=== PATIENT | male | born 1990 | race Caucasian/White ===

== ENCOUNTER 2017-05-14 23:31 | Inpatient (IN) | payer OTHER ==
[~2017-05-14] VITALS: Ht 167.6 cm; Wt 67.8 kg
[~2017-05-14 23:31] MED LIST: IBUP-232 PO; Z.0.NO CURRENT MEDS
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
[2017-05-14 23:44] VITALS: BP 145/93; PULSE 104; RESP 18; TEMP 98.5; O2SAT 98
[2017-05-15] LABS: AUTOMATED NEUTROPHIL # 4.1 TH/MM3 (1.8-7.7); BASOPHIL % 0.5 % (0.0-2.0); EOSINOPHIL # 0.1 TH/MM3 (0-0.4); EOSINOPHIL % 0.7 % (0.0-4.0); HEMATOCRIT 45.1 % (39.0-51.0); HEMO FLAGS DIFF FINAL; LYMPH % 34.8 % (9.0-44.0); LYMPHOCYTE # 2.7 TH/MM3 (1.0-4.8); MEAN CORPUSCULAR HEMOGLOBIN 32.9 PG (27.0-34.0); MEAN CORPUSCULAR HGB CONC 35.8 % (32.0-36.0); PLATELET COUNT 226 TH/MM3 (150-450); WHITE BLOOD COUNT 7.8 TH/MM3 (4.0-11.0)
[2017-05-15 00:05] LABS: AMPHETAMINE, URINE NEG (NEG); BARBITURATES, URINE NEG (NEG); COCAINE, URINE NEG (NEG)
[2017-05-15 00:15] LABS: ANION GAP 8 MEQ/L (5-15); BICARBONATE 27.4 MEQ/L (21.0-32.0); BLOOD UREA NITROGEN 8 MG/DL (7-18); CHLORIDE 105 MEQ/L (98-107); GLOMERULAR FILTRATION RATE 93 ML/MIN (>89); SODIUM (NA) 140 MEQ/L (136-145)
[2017-05-15] MEDS ORDERED: OLANZapine 10 MG TAB PO ONE (00:15)
[2017-05-15] MEDS ORDERED: POTASSIUM CHLORIDE 10 MEQ CONTROLLED RELEASE TAB PO ONE (00:30)
[2017-05-15] MEDS ORDERED: LORazepam 2 MG/ML VIAL IM ONE (01:30)
[2017-05-15 06:07] VITALS: BP 120/80; PULSE 68; RESP 20; TEMP 96.8; O2SAT 99
[2017-05-15] MEDS ORDERED: ZIPRASIDONE MESYLATE 20 MG VIAL IM PRN ×2 (13:00→21:00)
[2017-05-15] MEDS ORDERED: diphenhydrAMINE HCL 50 MG/ML VIAL IM ONE (13:00)
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
[2017-05-15] MEDS ORDERED: ACETAMINOPHEN 325 MG TAB PO PRN (21:00)
[2017-05-15] MEDS ORDERED: diphenhydrAMINE HCL 50 MG CAP PO PRN (21:00)
[2017-05-15] MEDS ORDERED: MAGNESIUM HYDROXIDE SUSP 30 ML CUP PO PRN (21:00)
[2017-05-15] MEDS ORDERED: ZIPRASIDONE HCL 20 MG CAP PO PRN (21:00)
[2017-05-15] MEDS ORDERED: LORazepam 2 MG/ML VIAL IM PRN (21:00)
[2017-05-15] MEDS: REMOVE OLD NICOTINE PATCH T-DERMAL SCH (21:00)
[2017-05-15] MEDS ORDERED: ALUMINUM/MAGNESIUM/SIMETH 30 ML CUP PO PRN (21:00)
[2017-05-15] MEDS ORDERED: diphenhydrAMINE HCL 50 MG/ML VIAL IM PRN (21:00)
[2017-05-15 22:45] VITALS: BP 115/82; PULSE 79; RESP 18; TEMP 98.1
[2017-05-16 06:06] VITALS: BP 111/71; PULSE 91; RESP 18; TEMP 97.9; O2SAT 100
[2017-05-16] MEDS: NICOTINE 21 MG/24 HR PATCH T-DERMAL SCH (09:00)
--- NOTE | 2017-05-16 12:03 | HHI.HP ---
Provisional Diagnosis Admission Date May 15, 2017 at 20:02 [place] I. Unspecified psychosis, r/o substance-induced psychosis, r/o schizophrenia, r/o schizoaffective disorder, bipolar type [place] II. Unspecified personality disorder, r/o antisocial personality disorder Otisco III. No medical history Otisco IV. History of conduct disorder, incarcerations, drug use Otisco V. 30 (Yohan Lorenzo MD) Certification of Person's Competence To Provide Express and Informed Consent I have personally examined Theron Beard , a person being served at [facility] onMay 16, 2017 11:25. Express and informed consent means consent voluntarily given in writing, by a competent person, after sufficient explanation and disclosure of the subject matter involved to enable the person to make a knowing and willful decision without any element of force, fraud, deceit, duress, or other form of constraint or coercion. This person is 18 years of age or older, is not now known to be incompetent to consent to treatment with a guardian advocate, and does not have a health care surrogate or proxy currently making medical treatment decisions. I have found this person to be one of the following: [] Competent to provide express and informed consent, as defined above, for voluntary admission to this facility and is competent to provide express and informed consent for treatment. He/she has the consistent capacity to make well reasoned, willful, and knowing decisions concerning his or her medical or mental health treatment. The person fully and consistently understands the purpose of the admission for examination/placement and is fully capable of personally exercising all rights assured under [place] [X] Incompetent to provide express and informed consent to voluntary admission, and this is incompetent to provide express and informed consent to treatment. The person must be transferred to involuntary status and a petition for a guardian advocate filed with the Circuit Court. [] Refusing to provide express and informed consent to voluntary admission but is competent to provide express and informed consent for treatment. The person must be discharged or transferred to involuntary status. Form shall be completed within 24 hours of a person's arrival at the receiving facility and filed in the clinical record of each person: 1. Admitted on a voluntary basis 2. Permitted to provide express and informed consent to his/her own treatment 3. Allowed to transfer from involuntary to voluntary status 4. Prior to permitting a person to consent to his or her own treatment after having been previously found incompetent to consent to treatment. (Yohan Lorenzo MD) History of Present Illness Capacity: Lacks Capacity HPI The patient is a 26-year-old man, self reported homeless, unemployed, recently released from group home after 5 years incarceration, with extensive psychiatric history of bipolar disorder, unspecified psychosis, cognitive disorder, substance use disorder, previous psychiatric hospitalizations, he was outpatient is the [facility], has been seen in [facility] before under Mcmillan act, documentation was reviewed, previous suicidal attempts, no significant medical history, who presents to the emergency department for evaluation under Mcmill[place] act. Per report, patient has been in [facility] for the last 5 years but 2 of which included solitary confinement. He is discharged 3 days ago. He has been off of his medications. Patient states he is unable to get medications. Patient was initially seen by Dr. Brown in [facility]: 26-year-old male with history of psychotic mental illness, recently released from [facility] after attempting suicide by copra processor. Was in [facility] for approximately 5 years in [place]. Recently treated in [place]. Brought to this area by his grandmother who is willing to serve as his guardian. Patient continues to be grossly psychotic, demonstrating word salad, echolalia, looseness of associations, impulsivity and appears to be responding to internal stimuli. Patient is very disorganized and obviously unable to care for himself. At this time he is requiring injectable Geodon and injectable Benadryl because he is agitated to the point of harming himself or others. On psychiatric evaluation today the patient is found in the recreational area of the [address] [id number], he is guarded, poorly cooperative, recently internally preoccupied and paranoid. Patient says that "I cannot follow what you are saying because you the room in moving faster than you mouth " . He says he is here because his head has been manipulated by social media and politicians and he is not "stolizated". Patient becomes very paranoid what I writing notes about what he is saying and becomes verbally hostile. As we talking with the patient he says that he recognized the medical student from previous encounters, but this is not true. Patient also says that TV and cameras are recording his movements and also his conversation. During the evaluation patient is very disorganized, is very difficult to follow his conversation due to the level of disorganization, tangentiality, loosening of associations time his conversation is a real word salad. As per nurses patient has been unpredictable in the unit, at times he seems to be threatening. Collateral information from grandmother, Sandy Reddy: Spoke with grandmother (Sandy Reddy) on the phone. She has not seen the patient for the past 5 years (prior to this weekend). dennis reports: [facility] and called her upon release. She reports he was very afraid and paranoid on the phone, but was able to hold conversation. She bought him a bus ticket to [place]. The bus was late to leave, and he arrived in [place], [place] around ~7:30am Monday morning. He somehow ended up at a hospital in [place] but refused to give anyone his name. Police were called and he was charged with disorderly conduct. When aryan spoke to him on the phone Monday, he had significantly deteriorated and was not making much sense. He was held overnight and released from police custody Monday around 2pm. Gma drove to [place] to pick him up, and says he was very paranoid and suspicious with disorganized speech and talking about "needing to follow the protocol." Aryan believes he has not slept much since . He lost his suitcase on the bus and aryan bought him clothes, but he dressed up in his sister's pink clothes and said the clothes belonged to him. On Monday, he refused to get in the car and became hostile and aggressive, stating "I'm in charge of this bitch. " Aryan called police at this time for [place] Act. This type of unstable, psychotic behavior is not new per dennis. She said he has been diagnosed with schizoid and bipolar disorder in the past. He was treated at [facility] as a child. She is unsure of any medication history but knows he was on meds while incarcerated. Patient has been in group home for the past 5 years after attempted suicide by copra processor in [place], [place]. Aryan says he spent the majority of his group home time in isolation. He wrote letters to aryan while incarcerated, which she says were strange and became increasingly disorganized leading up to his release. She wonders if something happened to him in group home, as he seems "broken." Prior to his incarceration, he lived with his (Pretty) and two children. They were at ~19yo then moved to [place] near her family. 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 The noticed him deteriorating and reported he was paranoid, thought the government was spying on him, and began taking apart cable boxes and electronics. On the day of the attempted suicide by copra processor, he left the a note , put on a suit, and went to a park with a rifle. There is an internet video of this event. He was admitted to a mental institution until he was "sane enough to stand trial." He and the are still , but she currently lives with another man in [place]. Grandma reports that the is a substance user (alcohol, THC). Patient was born in the [facility] and lived with bio mom until ~12yo. Mom carries diagnoses of schizoid, depression, and substance abuse per grandma. She was hospitalized for a suicide attempt when the patient was 12yo, and grandma assumed custody at this time. He never met his bio father. Maternal great uncle committed suicide, other family history is unknown. Patient has two siblings. 25yo sister was born with CMV, causing deafness and mental retardation. 22yo half-brother carries no known diagnoses. Sister lives with grandma and brother is in the army. (Yohan Lorenzo MD) Review of Systems Constitutional: DENIES: Diaphoretic episodes, Fatigue, Fever, Weight gain, Weight loss, Chills, Dizziness, Change in appetite, Night Sweats Endocrine: DENIES: Heat/cold intolerance, Polydipsia, Polyuria, Polyphagia Eyes: DENIES: Blurred vision, Diplopia, Eye inflammation, Eye pain, Vision loss , Photosensitivity, Double Vision Ears, nose, mouth, throat: DENIES: Tinnitus, Hearing loss, Vertigo, Nasal discharge, Oral lesions, Throat pain, Hoarseness, Ear Pain, Running Nose, Epistaxis, Sinus Pain, Toothache, Odynophagia Respiratory: DENIES: Apneas, Cough, Snoring, Wheezing, Hemoptysis, Sputum production, Shortness of breath Cardiovascular: DENIES: Chest pain, Palpitations, Syncope, Dyspnea on Exertion , PND, Lower Extremity Edema, Orthopnea, Claudication Gastrointestinal: DENIES: Abdominal pain, Black stools, Bloody stools, Constipation, Diarrhea, Nausea, Vomiting, Difficulty Swallowing, Anorexia Musculoskeletal: DENIES: Joint pain, Muscle aches, Stiffness, Joint Swelling, Back pain, Neck pain Integumentary: DENIES: Abnormal pigmentation, Nail changes, Pruritus, Rash Hematologic/lymphatic: DENIES: Bruising, Lymphadenopathy Immunologic/allergic: DENIES: Eczema, Urticaria Neurologic: DENIES: Abnormal gait, Headache, Localized weakness, Paresthesias, Seizures, Speech Problems, Tremor, Poor Balance Psychiatric: COMPLAINS OF: Confusion, Delusions (Yohan Lorenzo MD) Past Psych History Violence risk - others (6 mos) Increased Violence risk - self (6 mos) Increased (Yohan Lorenzo MD) Substance Abuse History Drugs/Alcohol past 12 months Patient denies the use of alcohol and drugs, his toxicology and BAL were negative (Yohan Lorenzo MD) Past Family Social History Coded Allergies: No Known Allergies (Verified , 12/05/07) Discontinued Reported Medications [facility] (No [facility] Meds[facility] Scripts Ibuprofen (Motrin)600 Mg Lmn489 Mg PO Q8HPRN #30 Ref 0 WITH MEALS Prov:Umberto Waggoner MD 12/05/07 Current Medications Medications (Trade) Dose Ordered Sig/Maite Route Start Time Stop Time Status Last Admin (Geodon Inj) 20 mg ONCE PRN IM 05/15/17 13:00 05/16/17 12:59 05/15/17 13:14 (Geodon) 20 mg Q8HR PRN PO 05/15/17 21:00 (Geodon Inj) 20 mg Q8H PRN IM 05/15/17 21:00 (Ativan) 1 mg Q6H PRN PO 05/15/17 21:00 (Ativan Inj) 1 mg Q6H PRN IM 05/15/17 21:00 (Benadryl) 50 mg Q6H PRN PO 05/15/17 21:00 (Benadryl Inj) 50 mg Q6H PRN IM 05/15/17 21:00 (Desyrel) 50 mg HS PRN PO 05/15/17 21:00 (Tylenol) 650 mg Q4H PRN PO 05/15/17 21:00 (Milk Of Magnesia Liq) 30 ml DAILY PRN PO 05/15/17 21:00 (Mag-Al Plus Susp Liq) 30 ml Q6H PRN PO 05/15/17 21:00 (Habitrol 21 Mg Patch.24 Hr) 1 patch DAILY T-DERMAL 05/16/17 09:00 Miscellaneous Information 1 HS T-DERMAL 05/15/17 21:00 (Yohan Lorenzo MD) Social History Spoke with grandmother (Sandy Reddy) on the phone. She has not seen the patient for the past 5 years (prior to this weekend). dennis reports: Patient was released from [facility] on and called her upon release. She reports he was very afraid and paranoid on the phone, but was able to hold conversation. She bought him a bus ticket to [place]. The bus was late to leave, and he arrived in [place], [place] around ~7:30am Monday morning. He somehow ended up at a hospital in [place] but refused to give anyone his name. Police were called and he was charged with disorderly conduct. When aryan spoke to him on the phone Monday, he had significantly deteriorated and was not making much sense. He was held overnight and released from police custody Monday around 2pm. Gma drove to [place] to pick him up, and says he was very paranoid and suspicious with disorganized speech and talking about "needing to follow the protocol." Aryan believes he has not slept much since . He lost his suitcase on the bus and aryan bought him clothes, but he dressed up in his sister's pink clothes and said the clothes belonged to him. On Monday, he refused to get in the car and became hostile and aggressive, stating "I'm in charge of this bitch. " Aryan called police at this time for [place] Act. This type of unstable, psychotic behavior is not new per aryan. She said he has been diagnosed with schizoid and bipolar disorder in the past. He was treated at [facility] as a child. She is unsure of any medication history but knows he was on meds while incarcerated. Patient has been in group home for the past 5 years after attempted suicide by copra processor in [place], [place]. Aryan says he spent the majority of his group home time in isolation. He wrote letters to aryan while incarcerated, which she says were strange and became increasingly disorganized leading up to his release. She wonders if something happened to him in group home, as he seems "broken." Prior to his incarceration, he lived with his (Pretty) and two children. They were at ~19yo then moved to [place] near her family. 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 The noticed him deteriorating and reported he was paranoid, thought the government was spying on him, and began taking apart cable boxes and electronics. On the day of the attempted suicide by copra processor, he left the a note , put on a suit, and went to a park with a rifle. There is an internet video of this event. He was admitted to a mental institution until he was "sane enough to stand trial." He and the are still , but she currently lives with another man in [place]. Aryan reports that the is a substance user (alcohol, THC). Patient was born in the [facility] and lived with bio mom until ~12yo. Mom carries diagnoses of schizoid, depression, and substance abuse per grandma. She was hospitalized for a suicide attempt when the patient was 12yo, and grandma assumed custody at this time. He never met his bio father. Maternal great uncle committed suicide, other family history is unknown. Patient has two siblings. 25yo sister was born with CMV, causing deafness and mental retardation. 22yo half-brother carries no known diagnoses. Sister lives with grandma and brother is in the army. (Gregory Collins M3) Physical Exam Vital Signs Vital Signs Date Time Temp Pulse Resp B/P Pulse Ox O2 Delivery O2 Flow Rate FiO2 05/16/17 06:06 97.9 91 18 111/71 100 Lab Results Laboratory Tests Test 05/14/17 23:40 White Blood Count 7.8 Red Blood Count 4.90 Hemoglobin 16.1 Hematocrit 45.1 Mean Corpuscular Volume 92.0 Mean Corpuscular Hemoglobin 32.9 Mean Corpuscular Hemoglobin 35.8 Concent Red Cell Distribution Width 13.0 Platelet Count 226 Mean Platelet Volume 8.8 Neutrophils (%) (Auto) 53.0 Lymphocytes (%) (Auto) 34.8 Monocytes (%) (Auto) 11.0 Eosinophils (%) (Auto) 0.7 Basophils (%) (Auto) 0.5 Neutrophils # (Auto) 4.1 Lymphocytes # (Auto) 2.7 Monocytes # (Auto) 0.9 Eosinophils # (Auto) 0.1 Basophils # (Auto) 0.0 CBC Comment DIFF FINAL Differential Comment Sodium Level 140 Potassium Level 3.0 Chloride Level 105 Carbon Dioxide Level 27.4 Anion Gap 8 Blood Urea Nitrogen 8 Creatinine 0.97 Estimat Glomerular Filtration 93 Rate Random Glucose 101 Calcium Level 8.9 Urine Opiates Screen NEG Urine Barbiturates Screen NEG Urine Amphetamines Screen NEG Urine Benzodiazepines Screen NEG Urine Cocaine Screen NEG Urine Cannabinoids Screen NEG Ethyl Alcohol Level LESS THAN 3 (Yohan Lorenzo MD) Mental Status Examination Appearance man, age appearing, fair hygiene, visible tattoos, [facility], guarded, withdrawn, superficially cooperative, suspicious Speech: Incoherent, Other (verbal incontinence and nologism ) Orientation: x3 Memory: Unremarkable Thought Process: Flight of Ideas, Loose Association, Tangential, Other (Word salad) Thought Content: Bizarre thinking, Paranoid Language Limited due to level of disorganization, mostly disorganized Fund of Knowledge Unable to be assess due to level of psychosis Hallucination Type: None Attention and Concentration: Abnormal Suicidal Ideation: No Previous Suicide Attempts: No Homicidal Ideation: No Previous Homicide Attempts: No Insight: Poor Judgment: Poor Affect: Irritable, Oppositional Mood: Angry Motor Activity: Normal gait (Yohan Lorenzo MD) Assessment & Plan Problem List: (1) Unspecified psychosis Assessment & Plan: 26 year-old man, with psychiatric history of conduct disorder, drug-induced psychosis, bipolar disorder, schizophrenia, as per documentation, previous psychiatric hospitalizations, previous suicidal attempts, history of aggressive behavior, incarcerations, recently released from group home after 5 years incarceration due to aggravated assault in a public servant, documented psychiatric family history, no significant medical history, who was brought to the ER under Mcmillan act due to disorganized and psychotic behavior and noncompliance with his medications. On psychiatric evaluation today the patient presents with disorganized thought process, marked paranoia, internally stimulated, unpredictable, neologisms, loosening of associations, unable to provide any meaningful and logical information for the psychiatric assessment at this moment due to the level of disorganization. At this point the etiology of current presentation is not clear. But, substance induced psychosis, schizophrenia, bipolar disorder with psychosis, as schizoaffective disorder need to be carefully ruled out. There are several elements of his psychiatric history, based on documentation and collateral information, that also suggests a potential underlying personality pathology, most probably antisocial personality disorder. Patient has a high risk for aggressive behavior in the unit. Please placed in assault precaution. At this moment the patient clearly represents an elevated risk of danger to self and other due to the level of psychosis. He needs to be admitted involuntarily in psychiatry for stabilization and safety. We will start the patient in Haldol 5 mg by mouth twice a day for psychosis, if patient refuses po Will give Haldol 5 mg IM. Will order Haldol 5 mg IM every 8 hours when necessary aggressive behavior and agitation. Will order clonazepam 0.5 mg twice a day for anxiety and restlessness. We'll order Cogentin 1 mg twice a day to avoid EPS. Depakote 500 mg bid for behavior control. final assembly worker intervention for psychosocial assessment, collateral information and to start a safe discharge plan. Consult psychiatry for second opinion. ICD Code: F29 Assessment & Plan Estimated LOS: days (Yohan Lorenzo MD) Yohan Lorenzo MD May 16, 2017 12:03 Gregory Collins May 16, 2017 14:11
[2017-05-16] MEDS ORDERED: HALOPERIDOL LACTATE 5 MG/ML AMP IM PRN ×2 (12:15)
[2017-05-16] MEDS: HALOPERIDOL 5 MG TAB PO SCH ×2 (13:42→21:25)
[2017-05-16] MEDS: clonazePAM 0.5 MG TAB PO SCH ×2 (13:42→21:26)
[2017-05-16] MEDS: DIVALPROEX SODIUM E.R. 500 MG TAB PO SCH ×2 (13:45→21:25)
[2017-05-16 18:04] VITALS: BP 127/78; PULSE 89; RESP 18; TEMP 97; O2SAT 98
[2017-05-16] MEDS: LORazepam 1 MG TAB PO PRN (18:22)
[2017-05-16] MEDS: REMOVE OLD NICOTINE PATCH T-DERMAL SCH (21:25)
[2017-05-16] MEDS: BENZTROPINE MESYLATE 1 MG TAB PO SCH (21:25)
[2017-05-17 06:01] VITALS: BP 110/71; PULSE 80; RESP 18; O2SAT 99
[2017-05-17] MEDS: clonazePAM 0.5 MG TAB PO SCH ×3 (06:12→21:07)
[2017-05-17] MEDS: DIVALPROEX SODIUM E.R. 500 MG TAB PO SCH ×2 (09:00→21:06)
[2017-05-17] MEDS: NICOTINE 21 MG/24 HR PATCH T-DERMAL SCH (09:00)
[2017-05-17] MEDS: BENZTROPINE MESYLATE 1 MG TAB PO SCH ×2 (09:39→21:06)
[2017-05-17] MEDS: HALOPERIDOL 5 MG TAB PO SCH ×2 (09:39→21:06)
--- NOTE | 2017-05-17 10:28 | HHI.PYPN ---
Subjective Remarks Patient seen for psychiatric reevaluation today, found sleeping, but arousable, I was present while Dr. Alcocer was doing his evaluation for second opinion and patient remained calm and cooperative, answered most of the question, but definitely disorganized. Patient seems to be more focus and engageable in a conversation, but oddly related, guarded and internally preoccupied. He sis that he will take his medication and he wants to get better and "smile again", but he feels as if he heads is "speeding in a different geometry". In the unit he has been unpredictable, at times verbally hostile and needs frequent redirection, but has not been really aggressive. He has been compliant with his medications, not significant side effects noted. He relates that in the past he had "lack neck once" from using Haldol, but he is willing to try again after a full explanation of giving Haldol along with benzo and anticholinergics. I spoke personally with his grand mother this morning about the possibility of discharging him to her house once psychiatrically clear. She says that she definitely does not want him in the street, but she does not think she has enough space at home. She will think about it. Medical regimen was discussed with her and she expressed understanding and agreement. Review of Systems Other No somatic complains Objective Alert: Yes Adams: Person, Place Mood: Calm Affect: Flat Memory Intact: Comment (no formally assesed ) Hallucinations: Other (He denies ) Delusions: Yes Delusion Type: Paranoid Suicidal: Ideation (No SI) Homicidal: Ideation (No si ) Insight/Judgment poor Vitals/IOs Vital Signs Date Time Temp Pulse Resp B/P Pulse Ox O2 Delivery O2 Flow Rate FiO2 05/17/17 06:01 80 18 110/71 99 05/16/17 18:04 97.0 Assessment & Plan Problem List: (1) Unspecified psychosis Assessment & Plan: Patient continues to be acutely psychotic, calmer and more engageable than yesterday, but still very paranoid and disorganized. Will continue current medication regiment. Support and psychoeducation provided. Will coordinate with SW a possible family meeting. ICD Code: F29 Assessment & Plan Estimated LOS: days Justification for Cont. Inpt. Acutely psychotic, needs to continue psychitrc hospitalization for stabilization and safety. Yohan Lorenzo MD May 17, 2017 10:28
--- NOTE | 2017-05-17 10:32 | PD.PSY.CON ---
Provisional Diagnosis Admission Date May 15, 2017 at 20:02 [place] I. 1. Unspecified psychosis [place] II. 1. Antisocial personality traits [place] V. GAF is 30 presently History of Present Illness Service Psychiatry Consult Requested By Dr. Lorenzo Reason for Consult Second opinion for involuntary psychiatric hospitalization Primary Care Physician Unknown HPI From Dr. Lorenzo's H&P: The patient is a 26-year-old man, self reported homeless, unemployed, recently released from [facility] after 5 years incarceration, with extensive psychiatric history of bipolar disorder, unspecified psychosis, cognitive disorder, substance use disorder, previous psychiatric hospitalizations, he was outpatient is the [facility], has been seen in [facility] before under Mcmillan act, documentation was reviewed, previous suicidal attempts, no significant medical history, who presents to the emergency department for evaluation under Mcmillan act. Per report, patient has been in detention for the last 5 years but 2 of which included solitary confinement. He is discharged 3 days ago. He has been off of his medications. Patient states he is unable to get medications. Patient was initially seen by Dr. Brown in [facility]: 26-year-old male with history of psychotic mental illness, recently released from detention after attempting suicide by undercover cop. Was in detention for approximately 5 years in [place]. Recently treated in [place]. Brought to this area by his grandmother who is willing to serve as his guardian. Patient continues to be grossly psychotic, demonstrating word salad, echolalia, looseness of associations, impulsivity and appears to be responding to internal stimuli. Patient is very disorganized and obviously unable to care for himself. At this time he is requiring injectable Geodon and injectable Benadryl because he is agitated to the point of harming himself or others. On psychiatric evaluation today the patient is found in the recreational area of the [address] [place] [id number] units, he is guarded, poorly cooperative, recently internally preoccupied and paranoid. Patient says that "I cannot follow what you are saying because you the room in moving faster than you mouth " . He says he is here because his head has been manipulated by social media and politicians and he is not "stolizated". Patient becomes very paranoid what I writing notes about what he is saying and becomes verbally hostile. As we talking with the patient he says that he recognized the medical student from previous encounters, but this is not true. Patient also says that TV and cameras are recording his movements and also his conversation. During the evaluation patient is very disorganized, is very difficult to follow his conversation due to the level of disorganization, tangentiality, loosening of associations time his conversation is a real word salad. As per nurses patient has been unpredictable in the unit, at times he seems to be threatening. Collateral information from grandmother, Sandy Reddy: Spoke with grandmother (Sandy Reddy) on the phone. She has not seen the patient for the past 5 years (prior to this weekend). Grandma reports: Patient was released from [facility] on and called her upon release. She reports he was very afraid and paranoid on the phone, but was able to hold conversation. She bought him a bus ticket to [place]. The bus was late to leave, and he arrived in [place], [place] around ~7:30am Monday morning. He somehow ended up at a hospital in [place] but refused to give anyone his name. Police were called and he was charged with disorderly conduct. When aryan spoke to him on the phone Monday, he had significantly deteriorated and was not making much sense. He was held overnight and released from police custody Monday around 2pm. Gma drove to [place] to pick him up, and says he was very paranoid and suspicious with disorganized speech and talking about "needing to follow the protocol." Aryan believes he has not slept much since . He lost his suitcase on the bus and aryan bought him clothes, but he dressed up in his sister's pink clothes and said the clothes belonged to him. On Monday, he refused to get in the car and became hostile and aggressive, stating "I'm in charge of this bitch. " Aryan called police at this time for [place] Act. This type of unstable, psychotic behavior is not new per granddennis. She said he has been diagnosed with schizoid and bipolar disorder in the past. He was treated at [facility] as a child. She is unsure of any medication history but knows he was on meds while incarcerated. Patient has been in [facility] for the past 5 years after attempted suicide by undercover cop in [place], [place]. Aryan says he spent the majority of his [facility] time in isolation. He wrote letters to granddennis while incarcerated, which she says were strange and became increasingly disorganized leading up to his release. She wonders if something happened to him in [facility], as he seems "broken." Prior to his incarceration, he lived with his (Pretty) and two children. They were at ~19yo then moved to [place] near her family. 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 The noticed him deteriorating and reported he was paranoid, thought the government was spying on him, and began taking apart cable boxes and electronics. On the day of the attempted suicide by undercover cop, he left the a note , put on a suit, and went to a park with a rifle. There is an internet video of this event. He was admitted to a mental institution until he was "sane enough to stand trial." He and the are still , but she currently lives with another man in [place]. Aryan reports that the is a substance user (alcohol, THC). Patient was born in the [facility] and lived with bio mom until ~12yo. Mom carries diagnoses of schizoid, depression, and substance abuse per grandma. She was hospitalized for a suicide attempt when the patient was 12yo, and grandma assumed custody at this time. He never met his bio father. Maternal great uncle committed suicide, other family history is unknown. Patient has two siblings. 25yo sister was born with CMV, causing deafness and mental retardation. 22yo half-brother carries no known diagnoses. Sister lives with grandma and brother is in the army. On my exam today: Patient seen and examined with counselor and Dr. Lorenzo. Chart reviewed. Case discussed with nursing staff. On my examination today, patient presents as a fairly vague historian. He is somewhat negativistic and occasionally volitionally mute. He appears internally preoccupied. He declines to answer when I ask about current SI/HI. He tells me that his grandmother sent him in to be hospitalized, "because I'm not in the right frame of mind to contemplate time displacement." Affect flat. Antisocial personality traits noted. Denies side effects from medications. No physical complaints. Past psychiatric history: Patient reports a history of "suicidal tendencies." He is not sure when he last saw a psychiatrist. He was admitted psychiatrically most recently in [place]. He endorses a history of previous suicide attempts. Family history: The patient endorses a family history of mental illness but cannot describe any diagnoses. Chemical dependency history: The patient reports "I try to" use drugs when he can. He reports use of cannabis most recently. Social history: The patient is . "I'm sure I have lots of kids." He at this point becomes volitionally mute and I can obtain no further history from him. Review of Systems ROS Limitations: Psychotic, Poor Historian Except as stated in HPI: all other systems reviewed are Neg Past Family Social History Coded Allergies: No Known Allergies (Verified , 12/05/07) Past Medical History See electronic medical record Discontinued Reported Medications Miscellaneous (No Current Meds) Misc 09/24/06 Discontinued Scripts Ibuprofen (Motrin)600 Mg Iyp116 Mg PO Q8HPRN #30 Ref 0 WITH MEALS Prov:Umberto Waggoner MD 12/05/07 Current Medications Medications (Trade) Dose Ordered Sig/Maite Route Start Time Stop Time Status Last Admin (Ativan) 1 mg Q6H PRN PO 05/15/17 21:00 05/16/17 18:22 (Ativan Inj) 1 mg Q6H PRN IM 05/15/17 21:00 (Benadryl) 50 mg Q6H PRN PO 05/15/17 21:00 (Benadryl Inj) 50 mg Q6H PRN IM 05/15/17 21:00 (Desyrel) 50 mg HS PRN PO 05/15/17 21:00 (Tylenol) 650 mg Q4H PRN PO 05/15/17 21:00 (Milk Of Magnesia Liq) 30 ml DAILY PRN PO 05/15/17 21:00 (Mag-Al Plus Susp Liq) 30 ml Q6H PRN PO 05/15/17 21:00 (Habitrol 21 Mg Patch.24 Hr) 1 patch DAILY T-DERMAL 05/16/17 09:00 Miscellaneous Information 1 HS T-DERMAL 05/15/17 21:00 (Haldol) 5 mg BID PO 05/16/17 12:15 05/17/17 09:39 (Haldol Inj) 5 mg Q12HR PRN IM 05/16/17 12:15 (Haldol Inj) 5 mg Q8HR PRN IM 05/16/17 12:15 (KlonoPIN) 0.5 mg Q8HR PO 05/16/17 14:00 05/17/17 06:12 (Cogentin) 1 mg Q12HR PO 05/16/17 21:00 05/17/17 09:39 (Depakote Er) 500 mg BID PO 05/16/17 13:45 05/17/17 09:00 Family History See above Social History See above Patient's Strengths (min. 2) In monitored setting. Verbally fluent. Physical Exam Physical exam completed by ED provider. On my examination today, the patient appears to be in no acute physical distress. No motor abnormalities noted. Teardrop tattoo noted at the lateral aspect of his eye. Labs and vitals reviewed: Vital Signs Vital Signs Date Time Temp Pulse Resp B/P Pulse Ox O2 Delivery O2 Flow Rate FiO2 05/17/17 06:01 80 18 110/71 99 05/16/17 18:04 97.0 Lab Results Laboratory Tests Test 05/14/17 23:40 White Blood Count 7.8 TH/MM3 Red Blood Count 4.90 MIL/MM3 Hemoglobin 16.1 GM/DL Hematocrit 45.1 % Mean Corpuscular Volume 92.0 FL Mean Corpuscular Hemoglobin 32.9 PG Mean Corpuscular Hemoglobin 35.8 % Concent Red Cell Distribution Width 13.0 % Platelet Count 226 TH/MM3 Mean Platelet Volume 8.8 FL Neutrophils (%) (Auto) 53.0 % Lymphocytes (%) (Auto) 34.8 % Monocytes (%) (Auto) 11.0 % Eosinophils (%) (Auto) 0.7 % Basophils (%) (Auto) 0.5 % Neutrophils # (Auto) 4.1 TH/MM3 Lymphocytes # (Auto) 2.7 TH/MM3 Monocytes # (Auto) 0.9 TH/MM3 Eosinophils # (Auto) 0.1 TH/MM3 Basophils # (Auto) 0.0 TH/MM3 CBC Comment DIFF FINAL Differential Comment Sodium Level 140 MEQ/L Potassium Level 3.0 MEQ/L Chloride Level 105 MEQ/L Carbon Dioxide Level 27.4 MEQ/L Anion Gap 8 MEQ/L Blood Urea Nitrogen 8 MG/DL Creatinine 0.97 MG/DL Estimat Glomerular Filtration 93 ML/MIN Rate Random Glucose 101 MG/DL Calcium Level 8.9 MG/DL Urine Opiates Screen NEG Urine Barbiturates Screen NEG Urine Amphetamines Screen NEG Urine Benzodiazepines Screen NEG Urine Cocaine Screen NEG Urine Cannabinoids Screen NEG Ethyl Alcohol Level LESS THAN 3 MG/DL Mental Status Examination Speech: Other (volitionally mute at times) Orientation: Person, Place (at least) Memory: Unremarkable Thought Process: Thought Blocking, Other (linear) Thought Content: Paranoid Hallucination Type: Auditory (appears int stim) Attention and Concentration: Easily Distracted Suicidal Ideation: No (declines to answer) Previous Suicide Attempts: Yes Homicidal Ideation: No (declines to answer) Previous Homicide Attempts: No Insight: Poor Judgment: Poor Affect if Inappropriate: Flat Mood: Oppositional Assessment & Plan Problem List: (1) Unspecified psychosis ICD Code: F29 Assessment & Plan Given the circumstances of his presentation here and his presentation on my examination today, I concur with Dr. Lorenzo that the patient meets criteria for involuntary psychiatric hospitalization under the Mcmillan act. I have completed the second opinion paperwork. Further care as per Dr. Lorenzo. Thank you very much for this consultation. Signing off. Vladimir Alcocer MD May 17, 2017 10:32
[2017-05-17 17:31] VITALS: BP 126/83; PULSE 95; RESP 18; TEMP 97.9; O2SAT 99
[2017-05-17] MEDS: REMOVE OLD NICOTINE PATCH T-DERMAL SCH (21:00)
[2017-05-18 05:22] VITALS: BP 89/56; PULSE 76; RESP 18; TEMP 97.2; O2SAT 99
[2017-05-18] MEDS: clonazePAM 0.5 MG TAB PO SCH ×3 (05:42→21:20)
[2017-05-18] MEDS: HALOPERIDOL 5 MG TAB PO SCH ×2 (07:55→21:08)
[2017-05-18] MEDS: NICOTINE 21 MG/24 HR PATCH T-DERMAL SCH (07:55)
[2017-05-18] MEDS: DIVALPROEX SODIUM E.R. 500 MG TAB PO SCH ×2 (07:55→21:07)
[2017-05-18] MEDS: BENZTROPINE MESYLATE 1 MG TAB PO SCH ×2 (07:55→21:07)
[2017-05-18 10:42] LABS: ANION GAP 7 MEQ/L (5-15); BICARBONATE 28.8 MEQ/L (21.0-32.0); BLOOD UREA NITROGEN 7 MG/DL (7-18); CHLORIDE 105 MEQ/L (98-107); GLOMERULAR FILTRATION RATE 114 ML/MIN (>89); POTASSIUM 4.1 MEQ/L (3.5-5.1); SODIUM (NA) 141 MEQ/L (136-145)
[2017-05-18 10:48] LABS: HDL CHOLESTEROL 45.5 MG/DL (40.0-60.0); LDL CHOLESTEROL 62 MG/DL (0-99)
[2017-05-18 11:03] LABS: HEMOGLOBIN A1a 0.8 %; HEMOGLOBIN A1b 0.8 %; HEMOGLOBIN Ao 87.7 %; HEMOGLOBIN F 0.7 %; HEMOGLOBIN LA1C 1.6 %; HEMOGLOBIN P3 3.1 %
--- NOTE | 2017-05-18 11:35 | HHI.PYPN ---
Subjective Remarks Patient was seen today for psychiatric reevaluation, patient continues to be disorganized, intrusive, with a tendency to violate others spaces and come very close to people, but verbally redirectable. Patient says that the medication is making him feel better, but his head is is still speeding too fast, and he feels that his thoughts are no "geometrically stable". Today he was able to say that the years he were in group home were terrible, he did not get any psychiatric care or any medication. He was in seclusion most of the time." People were very abusive with me in many ways". He reports that he has been depressed," I want to smile, I went to laugh, I want to be happy, but I can't". His goal is to get better and be discharged to his grandmother house. As per nurses report patient has been demanding, at times very disruptive and disorganized, but no aggressive behavior or agitation observed at this moment. He has been compliant with his medication, no significant side effects reported. Patient says that in the past he has taken Wellbutrin for depression with a very good results. Review of Systems Other Not somatic complaints Objective Alert: Yes [place]: Person, Place Mood: Calm Affect: Flat Memory Intact: Comment (no formally assesed ) Hallucinations: Other (He denies ) Delusions: Yes Delusion Type: Paranoid Suicidal: Ideation (No SI) Homicidal: Ideation (No si ) Insight/Judgment Fair Labs Test 05/18/17 09:53 Sodium Level 141 MEQ/L Potassium Level 4.1 MEQ/L Chloride Level 105 MEQ/L Carbon Dioxide Level 28.8 MEQ/L Anion Gap 7 MEQ/L Blood Urea Nitrogen 7 MG/DL Creatinine 0.81 MG/DL Estimat Glomerular Filtration 114 ML/MIN Rate Random Glucose 85 MG/DL Calcium Level 9.2 MG/DL Triglycerides Level 130 MG/DL Cholesterol Level 133 MG/DL LDL Cholesterol 62 MG/DL HDL Cholesterol 45.5 MG/DL Cholesterol/HDL Ratio 2.92 RATIO Vitals/IOs Vital Signs Date Time Temp Pulse Resp B/P Pulse Ox O2 Delivery O2 Flow Rate FiO2 05/18/17 05:22 97.2 76 18 89/56 99 Assessment & Plan Problem List: (1) Unspecified psychosis Assessment & Plan: Patient continues to be acutely psychotic, still very disorganized, paranoid, with poor ego boundaries. But, his conversation seems to be more structure, he is less agitated and aggressive that at the beginning of the hospitalization. Plan with his medications, no significant side effects. Definitely a positive response of current psychotropic regimen is observed. Will order EKG for baseline QTC. Will add Wellbutrin 75 mg twice a day for symptoms of depression. Extensive support and psychoeducation provided. We'll consider increasing Haldol to 10 mg at bedtime tomorrow. ICD Code: F29 Assessment & Plan Estimated LOS: days Justification for Cont. Inpt. Patient is acutely psychotic, admits to continue psychiatric hospitalization for stabilization. Yohan Lorenzo MD May 18, 2017 11:35
[2017-05-18 17:36] VITALS: BP 125/73; PULSE 105; RESP 17; TEMP 98.2; O2SAT 99
[2017-05-18] MEDS: REMOVE OLD NICOTINE PATCH T-DERMAL SCH (21:00)
[2017-05-18] MEDS: buPROPion HCL 75 MG TAB PO SCH (21:00)
[2017-05-19 05:52] VITALS: BP 106/63; PULSE 90; RESP 18; TEMP 98.1; O2SAT 99
[2017-05-19] MEDS: clonazePAM 0.5 MG TAB PO SCH ×3 (06:04→21:59)
[2017-05-19] MEDS: NICOTINE 21 MG/24 HR PATCH T-DERMAL SCH (08:28)
[2017-05-19] MEDS: BENZTROPINE MESYLATE 1 MG TAB PO SCH ×2 (08:28→20:23)
[2017-05-19] MEDS: HALOPERIDOL 5 MG TAB PO SCH ×2 (08:28→20:23)
[2017-05-19] MEDS: DIVALPROEX SODIUM E.R. 500 MG TAB PO SCH ×2 (08:28→20:23)
[2017-05-19] MEDS: buPROPion HCL 75 MG TAB PO SCH ×2 (08:28→20:23)
--- NOTE | 2017-05-19 11:14 | EKG ---
Date Performed: 05/18/2017 Time Performed: 14:16:03 PTAGE: 26 years EKG: Sinus rhythm NORMAL ECG Since PREVIOUS TRACING , no significant change noted PREVIOUS TRACIN09/19/2005 17.30 DOCTOR: Vladimir Mcgregor Interpretating Date/Time 05/19/2017 11:13:20
--- NOTE | 2017-05-19 12:39 | HHI.PYPN ---
Subjective Remarks Patient was seen today for psychiatric reevaluation with medical student Gregory , patient is found calm, cooperative, but talkative, with frequent interruption , but redirectable. Patient says that he feels much better, continues to be paranoid, he says doesn't know if he can trust "these people around me, and another day like me and I do feel safe sometimes". Patient also continue complaining about visual "problems", he is perseverat about the idea he needs glasses, and seems to have a poor and inappropriate frequent violation of other people's spaces. Patient has been compliant with his medication, no significant side effects reported. No episodes of aggressive behavior or agitation reported. But, as per nurses, patient has been demanding, frequently asking the same question, internally stimulated. Review of Systems Constitutional: DENIES: Diaphoretic episodes, Fatigue, Fever, Weight gain, Weight loss, Chills, Dizziness, Change in appetite, Night Sweats Endocrine: DENIES: Heat/cold intolerance, Polydipsia, Polyuria, Polyphagia Eyes: COMPLAINS OF: Vision loss, DENIES: Blurred vision, Diplopia, Eye inflammation, Eye pain, Photosensitivity, Double Vision Psychiatric: COMPLAINS OF: Confusion, Delusions Objective Alert: Yes [place]: Person, Place Mood: Calm Affect: Flat Memory Intact: Comment (no formally assesed ) Hallucinations: Other (He denies ) Delusions: Yes Delusion Type: Paranoid Suicidal: Ideation (No SI) Homicidal: Ideation (No si ) Insight/Judgment Poor Vitals/IOs Vital Signs Date Time Temp Pulse Resp B/P Pulse Ox O2 Delivery O2 Flow Rate FiO2 05/19/17 05:52 98.1 90 18 106/63 99 Assessment & Plan Problem List: (1) Unspecified psychosis Assessment & Plan: Will order Depakote levels. EKG reviewed, QTC is 354. Continue current psychotropic regimen. Extensive support, motivation and psychoeducation provided. Close monitoring of mood and behavior. ICD Code: F29 Assessment & Plan Estimated LOS: days Justification for Cont. Inpt. Patient is acutely psychotic, and needs to continue psychiatric hospitalization for stabilization. Yohan Lorenzo MD May 19, 2017 12:39
[2017-05-19 18:13] VITALS: BP 122/82; PULSE 107; RESP 18; TEMP 97.9; O2SAT 98
[2017-05-19] MEDS: REMOVE OLD NICOTINE PATCH T-DERMAL SCH (20:35)
[2017-05-20 05:41] VITALS: BP 110/68; PULSE 85; RESP 18; TEMP 97.9; O2SAT 99
[2017-05-20] MEDS: clonazePAM 0.5 MG TAB PO SCH ×3 (05:44→21:16)
[2017-05-20] MEDS: NICOTINE 21 MG/24 HR PATCH T-DERMAL SCH (08:06)
[2017-05-20] MEDS: HALOPERIDOL 5 MG TAB PO SCH ×2 (08:06→20:26)
[2017-05-20] MEDS: buPROPion HCL 75 MG TAB PO SCH ×2 (08:06→20:26)
[2017-05-20] MEDS: BENZTROPINE MESYLATE 1 MG TAB PO SCH ×2 (08:06→20:26)
[2017-05-20] MEDS: DIVALPROEX SODIUM E.R. 500 MG TAB PO SCH ×2 (08:06→20:26)
--- NOTE | 2017-05-20 17:07 | HHI.PYPN ---
Subjective Remarks Patient was seen and case discussed with nursing. Patient is pleasant and cooperative with exam. He is disheveled and internally preoccupied. Says he feels that if the TV is reversed he will get satanic messages. Denies auditory hallucinations but admits to them in the past. He is tolerating his medications well. His interacting with others. Denies any suicidal or homicidal ideation intent or plan Objective Alert: Yes [place]: Person, Place Mood: Calm Affect: Flat Memory Intact: Comment (no formally assesed ) Hallucinations: Other (He denies ) Delusions: Yes Delusion Type: Paranoid (some ideas of reference from TV) Suicidal: Ideation (No SI) Homicidal: Ideation (No si ) Insight/Judgment Poor Vitals/IOs Vital Signs Date Time Temp Pulse Resp B/P Pulse Ox O2 Delivery O2 Flow Rate FiO2 05/20/17 05:41 97.9 85 18 110/68 99 Assessment & Plan Problem List: (1) Unspecified psychosis ICD Code: F29 Assessment & Plan Continue current treatment plan Justification for Cont. Inpt. Patient will decompensate in a less restrictive setting Erik Bowen DO May 20, 2017 17:07
[2017-05-20 17:40] VITALS: BP 125/90; PULSE 101; RESP 18; TEMP 98.6; O2SAT 98
[2017-05-20] MEDS: REMOVE OLD NICOTINE PATCH T-DERMAL SCH (20:26)
[2017-05-20] MEDS: SODIUM CHLORIDE 0.65% NASAL SPRAY 45 ML BTL NASAL PRN (20:41)
[2017-05-20] MEDS: traZODone HCL 50 MG TAB PO PRN (22:27)
[2017-05-21] MEDS: clonazePAM 0.5 MG TAB PO SCH ×2 (06:07→14:00)
[2017-05-21] MEDS: buPROPion HCL 75 MG TAB PO SCH ×2 (08:22→21:08)
[2017-05-21] MEDS: BENZTROPINE MESYLATE 1 MG TAB PO SCH ×2 (08:22→21:08)
[2017-05-21] MEDS: DIVALPROEX SODIUM E.R. 500 MG TAB PO SCH ×2 (08:22→21:07)
[2017-05-21] MEDS: HALOPERIDOL 5 MG TAB PO SCH ×2 (08:22→21:08)
[2017-05-21] MEDS: NICOTINE 21 MG/24 HR PATCH T-DERMAL SCH (08:22)
[2017-05-21] MEDS: SODIUM CHLORIDE 0.65% NASAL SPRAY 45 ML BTL NASAL PRN (09:35)
--- NOTE | 2017-05-21 14:30 | HHI.PYPN ---
Subjective Remarks Patient was seen and case discussed with nursing. Patient appears more sedated and mildly slurred which could be from the Klonopin. He continues to ask me for amphetamine. Says auditory hallucinations are telling him stop/go. His behaving well on the unit and compliant with his medications. Objective Alert: Yes [place]: Person, Place Mood: Calm Affect: Flat Memory Intact: Comment (no formally assesed ) Hallucinations: Other (He denies ) Delusions: Yes Delusion Type: Paranoid (some ideas of reference from TV) Suicidal: Ideation (No SI) Homicidal: Ideation (No si ) Insight/Judgment Poor Vitals/IOs Vital Signs Date Time Temp Pulse Resp B/P Pulse Ox O2 Delivery O2 Flow Rate FiO2 05/20/17 17:40 98.6 101 18 125/90 98 Assessment & Plan Problem List: (1) Unspecified psychosis ICD Code: F29 Assessment & Plan We'll change Klonopin to every 12 hours Justification for Cont. Inpt. Patient would decompensate in a less restrictive setting Erik Bowen DO May 21, 2017 14:30
[2017-05-21 17:43] VITALS: BP 121/68; PULSE 117; RESP 18; TEMP 98; O2SAT 98
[2017-05-21] MEDS: REMOVE OLD NICOTINE PATCH T-DERMAL SCH (21:00)
[2017-05-21] MEDS ORDERED: clonazePAM 0.5 MG TAB PO SCH (21:00)
[2017-05-22 06:02] VITALS: BP 100/62; PULSE 76; RESP 18; TEMP 97.4; O2SAT 97
[2017-05-22] MEDS: NICOTINE 21 MG/24 HR PATCH T-DERMAL SCH (09:00)
[2017-05-22] MEDS: BENZTROPINE MESYLATE 1 MG TAB PO SCH ×2 (09:00→21:24)
[2017-05-22] MEDS: DIVALPROEX SODIUM E.R. 500 MG TAB PO SCH ×2 (09:00→21:24)
--- NOTE | 2017-05-22 09:12 | HHI.PYPN ---
Subjective Remarks Patient seen for psychiatric reevaluation today, patient remains internally preoccupied, he seems to be a little bit sedated, but calm and cooperative. Patient says that he feels that he is "stuck in time"he says that "the time keeps running faster he my mind". Patient says that he has been bored he wants to be discharged to his grandmother house. He described his mood as sad "I haven't been no being able to laugh in a long time, I'm always sad, I went to be a normal person like you and others". Patient reports feeling unsafe in the unit moment "some people don't like me, I don't know what they think about me". Patient is oriented 3. Compliant with medications, no significant side effects other than mild sedation. Less intrusiveness, restlessness and disorganization noted, which seems to be a positive response to psychotropics. Review of Systems Other No significant side effects Objective Alert: Yes [place]: Person, Place, Date Mood: Calm Affect: Flat Memory Intact: Immediate, Recent, Remote Hallucinations: Other (He denies ) Delusions: Yes Delusion Type: Paranoid (some ideas of reference from TV) Suicidal: Ideation (No SI) Homicidal: Ideation (No si ) Insight/Judgment Poor Vitals/IOs Vital Signs Date Time Temp Pulse Resp B/P Pulse Ox O2 Delivery O2 Flow Rate FiO2 05/22/17 06:02 97.4 76 18 100/62 97 Assessment & Plan Problem List: (1) Unspecified psychosis ICD Code: F29 (2) Schizophrenia Assessment & Plan: Patient remains psychotic, with persistent paranoia, disorganized speech, flat affect and internal preoccupation. Moderate improvement in his thought process and disruptive behavior noted. He also has some objective/subjective symptoms of depression. Will increase Haldol to 5 mg a.m. and 10 mg p.m. Will decrease clonazepam to 0.5 mg at bedtime to avoid oversedation. Will increase bupropion to 100 mg twice a day for depression. ICD Code: F20.9 Assessment & Plan Estimated LOS: days Justification for Cont. Inpt. Patient has an increased chance to become floridly psychotic and a danger to self and others at a lower level of care. Problem Qualifiers (1) Schizophrenia: Qualified Code: F20.9 - Schizophrenia, unspecified type Yohan Lorenzo MD May 22, 2017 09:12
[2017-05-22] MEDS: buPROPion HCL 100 MG TAB PO SCH ×2 (10:00→21:24)
[2017-05-22] MEDS ORDERED: buPROPion HCL 100 MG TAB PO SCH (10:00)
[2017-05-22] MEDS: LORazepam 1 MG TAB PO PRN (15:01)
[2017-05-22 18:00] VITALS: BP 126/73; PULSE 104; RESP 18; TEMP 98.2; O2SAT 98
[2017-05-22] MEDS ORDERED: clonazePAM 0.5 MG TAB PO SCH (21:00)
[2017-05-22] MEDS: REMOVE OLD NICOTINE PATCH T-DERMAL SCH (21:00)
[2017-05-22] MEDS: traZODone HCL 50 MG TAB PO PRN (21:24)
[2017-05-22] MEDS: HALOPERIDOL 10 MG TAB PO SCH (21:24)
[2017-05-23 06:05] VITALS: BP 114/67; PULSE 87; RESP 18; TEMP 97.3; O2SAT 99
[2017-05-23] MEDS: NICOTINE 21 MG/24 HR PATCH T-DERMAL SCH (09:00)
[2017-05-23] MEDS: HALOPERIDOL 5 MG TAB PO SCH (09:03)
[2017-05-23] MEDS: DIVALPROEX SODIUM E.R. 500 MG TAB PO SCH ×2 (09:03→20:37)
[2017-05-23] MEDS: BENZTROPINE MESYLATE 1 MG TAB PO SCH ×2 (09:03→20:37)
[2017-05-23] MEDS: buPROPion HCL 100 MG TAB PO SCH ×2 (10:00→20:37)
--- NOTE | 2017-05-23 14:33 | HHI.PYPN ---
Subjective Remarks Patient seen for psychiatric reevaluation with medical student Gregory, he is found in recreational area of [address] unit, he is calm and cooperative, he say he continues to feel as "the world in speeding to fast". Patient says that he feels much better, especially when he is inside his room, because are his room he feels observed and judged by others "I don't feel very safe". He also reports being very sleepy and sedated during the day "I feel very slow". Patient continues to show gingerly speech at times, very flat affect and internal preoccupation. He has been compliant with his medication, no significant side effects other than oversedation. Review of Systems Other No somatic complaints Objective Alert: Yes [place]: Person, Place, Date Mood: Calm Affect: Flat Memory Intact: Immediate, Recent, Remote Hallucinations: Other (He denies ) Delusions: Yes Delusion Type: Paranoid (some ideas of reference from TV) Suicidal: Ideation (No SI) Homicidal: Ideation (No si ) Insight/Judgment Poor Vitals/IOs Vital Signs Date Time Temp Pulse Resp B/P Pulse Ox O2 Delivery O2 Flow Rate FiO2 05/23/17 06:05 97.3 87 18 114/67 99 Assessment & Plan Problem List: (1) Unspecified psychosis ICD Code: F29 (2) Schizophrenia Assessment & Plan: We'll continue current psychotropic regimen for psychosis, will discontinue clonazepam to avoid sedation. Brief supportive psychotherapy provided. ICD Code: F20.9 Assessment & Plan Estimated LOS: days Justification for Cont. Inpt. Patient has an increased risk to decompensate out of the psychiatric unit. Problem Qualifiers (1) Schizophrenia: Qualified Code: F20.9 - Schizophrenia, unspecified type Yohan Lorenzo MD May 23, 2017 14:33
[2017-05-23 18:07] VITALS: BP 114/64; PULSE 82; RESP 18; TEMP 98; O2SAT 92
[2017-05-23] MEDS: SODIUM CHLORIDE 0.65% NASAL SPRAY 45 ML BTL NASAL PRN (20:37)
[2017-05-23] MEDS: traZODone HCL 50 MG TAB PO PRN (20:37)
[2017-05-23] MEDS: HALOPERIDOL 10 MG TAB PO SCH (20:37)
[2017-05-23] MEDS: REMOVE OLD NICOTINE PATCH T-DERMAL SCH (20:37)
[2017-05-24 06:01] VITALS: BP 105/67; PULSE 77; RESP 18; TEMP 97.1; O2SAT 98
[2017-05-24] MEDS: DIVALPROEX SODIUM E.R. 500 MG TAB PO SCH ×2 (09:21→20:52)
[2017-05-24] MEDS: BENZTROPINE MESYLATE 1 MG TAB PO SCH ×2 (09:21→20:52)
[2017-05-24] MEDS: HALOPERIDOL 5 MG TAB PO SCH (09:21)
[2017-05-24] MEDS: NICOTINE 21 MG/24 HR PATCH T-DERMAL SCH (09:22)
--- NOTE | 2017-05-24 09:51 | HHI.PYPN ---
Subjective Remarks Patient was seen today for psychiatric reevaluation, patient was found in the recreational area of the 2700 unit, he was eating his breakfast, he was calm, cooperative, but guarded. Patient says that he has been thinking and what he has to do to get better and be discharged to his grandmother house. Patient says that he is motivated to get better, to find a good job, continue his medication and have a normal life. However, patient still psychotic, very preoccupied about the color of his skin, he says "I have been thinking I am dying, my skin is becoming black". He also endorses depressive symptoms,, low energy, generalized pessimism, frequent sadness and crying spells. Episodically disorganized, but easily redirectable. He denies suicidal or homicidal ideation, he denies visual and auditory hallucinations. No aggressive behavior or agitation reported. Compliant with medications, no significant side effects noted. Review of Systems Other Patient doesn't have any somatic complaints Objective Alert: Yes [place]: Person, Place, Date Mood: Depressed Affect: Flat Memory Intact: Immediate, Recent, Remote Hallucinations: Other (He denies ) Delusions: Yes Delusion Type: Paranoid (some ideas of reference from TV) Suicidal: Ideation (No SI) Homicidal: Ideation (No si ) Insight/Judgment Poor Vitals/IOs Vital Signs Date Time Temp Pulse Resp B/P Pulse Ox O2 Delivery O2 Flow Rate FiO2 05/24/17 06:01 97.1 77 18 105/67 98 Assessment & Plan Problem List: (1) Unspecified psychosis Assessment & Plan: Patient has definitely showed a positive response to psychotropic regimen, but still psychotic and showing symptoms of depression. Today will increase Wellbutrin to 150 mg twice a day. Extensive support, motivation and psychoeducation provided. ICD Code: F29 (2) Schizophrenia ICD Code: F20.9 Assessment & Plan Estimated LOS: days Justification for Cont. Inpt. Patient is to continue psychiatric hospitalization for stabilization of psychosis and for safety. Problem Qualifiers (1) Schizophrenia: Qualified Code: F20.9 - Schizophrenia, unspecified type Yohan Lorenzo MD May 24, 2017 09:51
[2017-05-24] MEDS: buPROPion HCL 75 MG TAB PO SCH ×2 (11:00→23:00)
[2017-05-24 20:00] VITALS: BP 112/71; PULSE 101; RESP 16; TEMP 98.8; O2SAT 98
[2017-05-24] MEDS: HALOPERIDOL 10 MG TAB PO SCH (20:52)
[2017-05-24] MEDS: REMOVE OLD NICOTINE PATCH T-DERMAL SCH (21:00)
[2017-05-25 04:32] VITALS: BP 96/58; PULSE 89; RESP 18; TEMP 97.8; O2SAT 97
[2017-05-25] MEDS: HALOPERIDOL 5 MG TAB PO SCH (08:12)
[2017-05-25] MEDS: DIVALPROEX SODIUM E.R. 500 MG TAB PO SCH (08:12)
[2017-05-25] MEDS: NICOTINE 21 MG/24 HR PATCH T-DERMAL SCH (08:12)
[2017-05-25] MEDS: BENZTROPINE MESYLATE 1 MG TAB PO SCH (08:12)
[2017-05-25] MEDS: buPROPion HCL 75 MG TAB PO SCH (10:54)
[2017-05-25] MEDS ORDERED: HALO10TA PO (11:37)
[2017-05-25] MEDS ORDERED: HALO5TAB PO (11:37)
[2017-05-25] MEDS ORDERED: DEPA500T3 PO (11:37)
[2017-05-25] MEDS ORDERED: Benztropine PO (11:37)
[2017-05-25] MEDS ORDERED: BUPR75TA PO (11:37)
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
[2017-05-25] MEDS: LORazepam 1 MG TAB PO PRN (12:24)
== END 2017-05-25 17:10 | disposition home or self-care (01) | DRG 885 ==
LOC: NEPD 23:31 → NEDA 05-15 20:02 → H270 05-15 20:44
PROVIDERS: ADMIT Psychiatry & Neurology Psychiatry; ATTEND Psychiatry & Neurology Psychiatry
DX: F25.0 Schizoaffective disorder, bipolar type (principal); Z91.14 Patient's other noncompliance with medication regimen; E87.6 Hypokalemia; Z59.0 Homelessness; F17.210 Nicotine dependence, cigarettes, uncomplicated
CPT/HCPCS: 80048; 80061; 80164; 80307; 83036; 85025; 93005; 96372; J1200; J2060; J3486

== ENCOUNTER 2017-11-20 15:25 | Emergency (ER) | payer OTHER ==
[~2017-11-20 15:25] MED LIST changes: +BUPR75TA PO; +Benztropine PO; +DEPA500T3 PO; +HALO10TA PO; +HALO5TAB PO; -IBUP-232 PO; -Z.0.NO CURRENT MEDS
[2017-11-20 15:27] VITALS: BP 122/75; PULSE 93; RESP 17; TEMP 98.7; O2SAT 99
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
--- NOTE | 2017-11-20 18:19 | PD ---
HPI Chief Complaint: Chest Pain Time Seen by Provider: 17:54 Travel History International Travel<30 days: No Contact w/Intl Traveler<30days: No Traveled to known affect area: No History of Present Illness HPI 27-year-old male presents the emergency department with sudden onset anterior left chest discomfort over the past 2 days. Patient has history of PE status post right femoral fracture with sharron placement several years ago. He was on Coumadin for 3 years but then it was discontinued. That was approximately 2 years ago. Patient denies any fever, chest congestion, productive cough, or other infectious symptoms. Patient states pain is worse with cough and certain movements. He is concerned about possible recurrent PE. Pain is currently 6 out of 10. Again worse with deep breath or cough. Patient denies any injury that may have caused this. He has no known drug allergies. PFSH Past Medical History Bipolar Disorder: Yes Diminished Hearing: No Psychiatric: Yes (Anti-Social Personality Disorder, Schizophrenia, Bi-polar Disorder) Immunizations Current: Yes Schizophrenia: Yes Thyroid Disease: No Ulcer: No Influenza Vaccination: No Social History Alcohol Use: Yes (OCCASIONALLY) Tobacco Use: Yes (1 PPD) Substance Use: Yes (MARIJUANA) Allergies-Medications (Allergen,Severity, Reaction): Coded Allergies: No Known Allergies (Verified , 12/05/07) Reported Meds & Prescriptions Reported Meds & Active Scripts Active Ibuprofen 800 Mg Tab 800 Mg PO Q6HR PRN Haloperidol 10 Mg Tab 10 Mg PO HS Haloperidol 5 Mg Tab 5 Mg PO DAILY Depakote ER (Divalproex Sodium) 500 Mg Ra 500 Mg PO BID Bupropion HCl 75 Mg Tab 150 Mg PO Q12H [Benztropine] 1 MG Tab 1 Mg PO Q12HR Review of Systems Except as stated in HPI: all other systems reviewed are Neg General / Constitutional: No: Fever Eyes: No: Visual changes HENT: No: Headaches Cardiovascular: Positive: Chest Pain or Discomfort Respiratory: Positive: Pleuritic Pain (See history of present illness), No: Cough, Shortness of Breath, Wheezing Gastrointestinal: No: Abdominal Pain Genitourinary: No: Dysuria Musculoskeletal: No: Pain Skin: No Rash Neurologic: No: Weakness Psychiatric: No: Depression Endocrine: No: Polydipsia Hematologic/Lymphatic: No: Easy Bruising Physical Exam Narrative GENERAL: Patient appears in mild distress SKIN: Warm and dry. Normal color. Normal turgor. HEAD: Atraumatic. Normocephalic. EYES: Pupils equal and round. No scleral icterus. No injection or drainage. ENT: No nasal bleeding or discharge. Mucous membranes pink and moist. Pharynx is clear. Airway is patent NECK: Trachea midline. Supple and nontender CARDIOVASCULAR: Regular rate and rhythm. No murmurs gallops rubs RESPIRATORY: No accessory muscle use. Clear to auscultation. Breath sounds equal bilaterally. No reproducible chest wall pain with palpation or percussion GASTROINTESTINAL: Abdomen soft, non-tender, nondistended. Hepatic and splenic margins not palpable. MUSCULOSKELETAL: Extremities without clubbing, cyanosis, or edema. No obvious deformities. NEUROLOGICAL: Awake and alert. No obvious cranial nerve deficits. Motor grossly within normal limits. Five out of 5 muscle strength in the arms and legs. Normal speech. PSYCHIATRIC: Appropriate mood and affect; insight and judgment normal. Data Data Last Documented VS Vital Signs Date Time Temp Pulse Resp B/P (MAP) Pulse Ox O2 Delivery O2 Flow Rate FiO2 11/20/17 20:17 78 16 118/72 (87) 99 11/20/17 18:06 Room Air 11/20/17 15:27 98.7 Orders Orders Chest, Pa & Lat (11/20/17 ) Electrocardiogram (11/20/17 ) Basic Metabolic Panel (Bmp) (11/20/17 18:17) Complete Blood Count With Diff (11/20/17 18:17) Prothrombin Time / Inr (Pt) (11/20/17 18:17) Act Partial Throm Time (Ptt) (11/20/17 18:17) Ecg Monitoring (11/20/17 18:17) Iv Access Insert/Monitor (11/20/17 18:17) Oximetry (11/20/17 18:17) Aspirin Chew (Aspirin Chew) (11/20/17 18:30) Sodium Chloride 0.9% Flush (Ns Flush) (11/20/17 18:30) Sodium Chlorid 0.9% 500 Ml Inj (Ns 500 M (11/20/17 18:30) Ct Pulmonary Angiogram (11/20/17 18:17) Iohexol 350 Inj (Omnipaque 350 Inj) (11/20/17 19:34) Ed Discharge Order (11/20/17 20:06) Labs Laboratory Tests Test 11/20/17 18:40 White Blood Count 8.1 TH/MM3 Red Blood Count 4.69 MIL/MM3 Hemoglobin 15.6 GM/DL Hematocrit 44.1 % Mean Corpuscular Volume 93.9 FL Mean Corpuscular Hemoglobin 33.3 PG Mean Corpuscular Hemoglobin Concent 35.4 % Red Cell Distribution Width 13.1 % Platelet Count 223 TH/MM3 Mean Platelet Volume 8.8 FL Neutrophils (%) (Auto) 50.7 % Lymphocytes (%) (Auto) 35.7 % Monocytes (%) (Auto) 8.2 % Eosinophils (%) (Auto) 4.8 % Basophils (%) (Auto) 0.6 % Neutrophils # (Auto) 4.1 TH/MM3 Lymphocytes # (Auto) 2.9 TH/MM3 Monocytes # (Auto) 0.7 TH/MM3 Eosinophils # (Auto) 0.4 TH/MM3 Basophils # (Auto) 0.1 TH/MM3 CBC Comment DIFF FINAL Differential Comment Prothrombin Time 10.3 SEC Prothromb Time International Ratio 1.0 RATIO Activated Partial Thromboplast Time 26.9 SEC Blood Urea Nitrogen 8 MG/DL Creatinine 0.92 MG/DL Random Glucose 96 MG/DL Calcium Level 9.3 MG/DL Sodium Level 140 MEQ/L Potassium Level 3.6 MEQ/L Chloride Level 106 MEQ/L Carbon Dioxide Level 26.8 MEQ/L Anion Gap 7 MEQ/L Estimat Glomerular Filtration Rate 98 ML/MIN [facility] Medical Decision Making Medical Screen Exam Complete: Yes Emergency Medical Condition: Yes Medical Record Reviewed: Yes Differential Diagnosis Chest wall pain. Pleuritic pain. Pleurisy. PE. Narrative Course Labs ordered including CBC, CMP, and coagulation studies. Chest x-ray shows no obvious findings. CTA is ordered due to patient's previous history. 1900 hrs. CARE the patient is turned over Karlene Ji nurse practitioner, awaiting CTA results. Scripts Ibuprofen (Ibuprofen) 800 Mg Tab 800 MG PO Q6HR Y for PAIN, #40 TAB 0 Refills Prov: Karlene Fry 11/20/17 Condition: Stable Jae Staley Nov 20, 2017 18:19
[2017-11-20] MEDS ORDERED: SODIUM CHLORID 0.9% 500 ML INJ 500 ML IV ONE (18:30)
[2017-11-20] MEDS ORDERED: SODIUM CHLORIDE 0.9% FLUSH 10 ML FLUSH IVF PRN (18:30)
[2017-11-20] MEDS ORDERED: ASPIRIN 81 MG CHEW TAB PO ONE (18:30)
[2017-11-20 18:55] LABS: AUTOMATED NEUTROPHIL # 4.1 TH/MM3 (1.8-7.7); BASOPHIL # 0.1 TH/MM3 (0-0.2); BASOPHIL % 0.6 % (0.0-2.0); EOSINOPHIL # 0.4 TH/MM3 (0-0.4); EOSINOPHIL % 4.8 % (0.0-4.0); HEMATOCRIT 44.1 % (39.0-51.0); HEMOGLOBIN 15.6 GM/DL (13.0-17.0); LYMPH % 35.7 % (9.0-44.0); LYMPHOCYTE # 2.9 TH/MM3 (1.0-4.8); MEAN CELL VOLUME 93.9 FL (80.0-100.0); MEAN CORPUSCULAR HEMOGLOBIN 33.3 PG (27.0-34.0); MEAN CORPUSCULAR HGB CONC 35.4 % (32.0-36.0); MEAN PLATELET VOLUME 8.8 FL (7.0-11.0); MONO % 8.2 % (0.0-8.0); MONOCYTE # 0.7 TH/MM3 (0-0.9); NEUT % 50.7 % (16.0-70.0); PLATELET COUNT 223 TH/MM3 (150-450); RED BLOOD COUNT 4.69 MIL/MM3 (4.50-5.90); RED CELL DISTRIBUTION WIDTH 13.1 % (11.6-17.2); WHITE BLOOD COUNT 8.1 TH/MM3 (4.0-11.0)
[2017-11-20 19:07] LABS: PROTHROMBIN TIME - PATIENT 10.3 SEC (9.8-11.6)
[2017-11-20 19:17] LABS: BICARBONATE 26.8 MEQ/L (21.0-32.0); CALCIUM 9.3 MG/DL (8.5-10.1); CREATININE 0.92 MG/DL (0.60-1.30)
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
[2017-11-20] MEDS ORDERED: IOHEXOL 350 MG/ML 10 ML VIAL (for RAD DIAG) IVCONTRAST ONE (19:34)
[2017-11-20] MEDS ORDERED: IBUP1TAB7 PO (20:05)
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
[2017-11-20 20:17] VITALS: BP 118/72
--- NOTE | 2017-11-21 15:49 | EKG ---
Date Performed: 11/20/2017 Time Performed: 16:58:48 PTAGE: 27 years EKG: Sinus rhythm WITH SINUS ARRHYTHMIA NORMAL ECG Since the prior tracing, there has been no significant change PREVIOUS TRACING : 05/18/2017 14.16 DOCTOR: Marc Weiss Interpretating Date/Time 11/21/2017 15:49:21
== END 2017-11-20 20:18 | disposition home or self-care (01) ==
LOC: NEPD 15:25
DX: R07.89 Other chest pain (principal); F31.9 Bipolar disorder, unspecified; F20.9 Schizophrenia, unspecified; F17.200 Nicotine dependence, unspecified, uncomplicated; F12.90 Cannabis use, unspecified, uncomplicated
CPT/HCPCS: 71046; 71275; 80048; 85025; 85610; 85730; 93005; 96360; 99285; J7040; Q9967

== ENCOUNTER 2018-03-02 19:46 | Emergency (ER) | payer OTHER ==
[~2018-03-02] VITALS: Ht 167.6 cm; Wt 72.5 kg
[~2018-03-02 19:46] MED LIST changes: +IBUP1TAB7 PO
[2018-03-02 20:18] VITALS: BP 149/80; PULSE 95; RESP 22; TEMP 97.7; O2SAT 100
== END 2018-03-03 00:25 | disposition left against medical advice (07) ==
LOC: NED 19:46
DX: F41.9 Anxiety disorder, unspecified (principal)
CPT/HCPCS: 99281

== ENCOUNTER 2018-03-03 01:27 | Emergency (ER) | payer OTHER ==
[~2018-03-03] VITALS: Ht 165.1 cm; Wt 72.0 kg
[2018-03-03 01:35] VITALS: BP 135/94; PULSE 112; RESP 16; TEMP 98.5; O2SAT 98
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
[2018-03-03] MEDS ORDERED: SODIUM CHLOR 0.9% 1000 ML INJ 1,000 ML IV ONE (03:30)
[2018-03-03] MEDS ORDERED: INSULIN HUMAN REGULAR 1,000 UNITS/10 ML VIAL IV PUSH ONE (03:30)
== END 2018-03-03 04:40 | disposition left against medical advice (07) ==
LOC: NEPD 01:27
DX: F31.9 Bipolar disorder, unspecified (principal); F20.9 Schizophrenia, unspecified; F60.2 Antisocial personality disorder
CPT/HCPCS: 99281